=== PATIENT | male | born 1990 | race Caucasian/White ===

== ENCOUNTER 2023-02-28 06:30 | Day surgery (SDC) | payer BC ==
[~2023-02-28 06:30] MED LIST: Lactated Ringers 1,000 ML IV SCH; Sodium Chloride 0.9% 10 ML Syringe FLUSH PRN; Sodium Chloride 0.9% 10 ML Syringe FLUSH SCH
[2023-02-28] MEDS ORDERED: Scopalamine 1mg/3day Transdermal Patch TRDERM PRN (06:52)
[2023-02-28] MEDS ORDERED: HYDROmorphone 0.5 MG/0.5 ML Syringe IVPUSH PRN ×2 (07:31→07:45)
[2023-02-28] MEDS ORDERED: fentaNYL 100 MCG/2 ML SDV IVPUSH PRN ×2 (07:31→07:45)
[2023-02-28] MEDS ORDERED: Ondansetron 4 MG/2 ML SDV IVPUSH PRN (07:31)
[2023-02-28] MEDS ORDERED: EPINEPHrine 1 MG/ML SDV ONE (07:33)
[2023-02-28] MEDS ORDERED: Bupivacaine 0.25% 10 ML SDV ONE (07:33)
[2023-02-28] MEDS ORDERED: Acetaminophen/HYDROcodone 325-5 MG Tab PO PRN (07:37)
[2023-02-28] MEDS ORDERED: Midazolam 1 MG/ML 2 ML SDV ONE ×2 (07:38→07:41)
[2023-02-28] MEDS ORDERED: Lidocaine 2% 11 ML Jelly Filled Syringe ONE (07:38)
[2023-02-28] MEDS ORDERED: fentaNYL 100 MCG/2 ML SDV ONE ×2 (07:38→07:40)
[2023-02-28] MEDS ORDERED: Propofol 200 MG/20 ML SDV ONE ×2 (07:38→07:40)
[2023-02-28] MEDS ORDERED: Lidocaine 2% 5 ML SDV ONE (07:40)
[2023-02-28] MEDS ORDERED: Ondansetron 4 MG/2 ML SDV ONE (07:40)
[2023-02-28] MEDS ORDERED: Dexamethasone 4 MG/ML 5 ML MDV ONE (07:40)
[2023-02-28] MEDS ORDERED: Lactated Ringers 1,000 ML ONE (08:43)
[2023-02-28] MEDS ORDERED: ceFAZolin 2 GM Vial ONE (08:43)
== END 2023-02-28 09:56 | disposition home or self-care (01) ==
LOC: JD.SDS 06:30
PROVIDERS: ATTEND Orthopaedic Surgery
DX: S83.241A Other tear of medial meniscus, current injury, right knee, initial encounter (principal); Z98.890 Other specified postprocedural states; Z79.899 Other long term (current) drug therapy
CPT/HCPCS: 29881; A9270; J0171; J0690; J1100; J2250; J2405; J2704; J3010; J3490; J7120; 01400